=== PATIENT | male | born 1990 | race Caucasian/White ===

== ENCOUNTER 2023-08-20 13:27 | Emergency (ER) | payer OTHER, SELFPAY ==
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
[2023-08-20 13:32] VITALS: BP 111/65; PULSE 97; RESP 20; TEMP 36.6; O2SAT 98; BMI 25.8
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
[2023-08-20 13:58] LABS: MANUAL DIFF FLAG NO
[2023-08-20 14:06] LABS: Basophils Percent Auto 0.5 % (0-2); Eosinophils Absolute Auto 0.1 X10*3/uL (0.0-0.4); Eosinophils Percent Auto 1.2 % (0-4); Hematocrit 45.2 % (42.0-52.0); Hemoglobin 15.5 g/dl (14.0-18.0); Imm Gran Abs Auto 0.05 X10*3/uL (0.00-0.03); Imm Gran Pct Auto 0.7 % (0.0-0.4); Lymphocytes Absolute Auto 2.3 X10*3/uL (1.2-4.9); Lymphocytes Percent Auto 29.9 % (20-40); Mean Corpuscular HGB Conc 34.3 g/dl (31.0-36.0); Mean Corpuscular Hemoglobin 30.2 pg (27.0-33.0); Mean Corpuscular Volume 87.9 fL (80.0-98.0); Mean Platelet Volume 10.3 fL (9.4-12.4); Monocytes Absolute Auto 0.5 X10*3/uL (0.1-1.2); Monocytes Percent Auto 6.5 % (2-11); Neutrophils Absolute Auto 4.7 x10*3/uL (2.0-8.3); Neutrophils Percent Auto 61.2 % (45-73); Platelet Count 213 X10*3/uL (160-400); Red Blood Count 5.14 X10*6/uL (4.60-5.80); Red Cell Distribution Width 13.2 % (11.0-16.0); White Blood Count 7.7 X10*3/uL (4.8-10.8)
[2023-08-20 14:17] LABS: Alanine Aminotransferase 33 U/L (0-40); Albumin Level 4.4 g/dL (3.5-5.0); Alkaline Phosphatase 57 U/L (39-117); Anion Gap 10 (12-20); Aspartate Amino Transferase 28 U/L (5-37); Bilirubin Direct 0.2 mg/dL (0.0-0.5); Bilirubin Total 0.6 mg/dL (0.0-1.0); Blood Urea Nitrogen 16 mg/dL (9-16); Calcium 9.2 mg/dL (8.4-10.2); Carbon Dioxide 30 mmol/L (22-29); Chloride 104 mmol/L (96-108); Creatinine Clr Calc Pharmacy 93.5; Estimated Glomerular Filt Rate > 60; Glucose Random 150 mg/dL (60-115); Lipase 18 U/L (8-78); Potassium 3.9 mmol/L (3.3-5.1); Sodium 140 mmol/L (135-145); Total Protein 7.1 g/dL (6.5-8.0)
[2023-08-20 15:20] VITALS: BP 107/67; PULSE 86; RESP 16; O2SAT 99
[2023-08-20] MEDS: iohexoL 350 MG/ML 100 ML INFUS..BTL IV (15:58)
[2023-08-20] MEDS: Lidocaine HCl 1 % MPF 5 ML VIAL SUBCUT ×3 (16:52→16:54)
[2023-08-20] MEDS: Diphth,Pertus(ACell),Tet Adult 0.5 ML SYRINGE IM (16:54)
[2023-08-20 19:06] VITALS: BP 138/79; PULSE 88; RESP 16; TEMP 37; O2SAT 99
== END 2023-08-20 19:23 | disposition home or self-care (01) ==
PROVIDERS: Physician Assistant Medical; Emergency Provider Internal Medicine
DX: S81.811A Laceration without foreign body, right lower leg, initial encounter (principal); V86.55XA Driver of 3- or 4- wheeled all-terrain vehicle (ATV) injured in nontraffic accident, initial encounter; R07.89 Other chest pain; Y93.89 Activity, other specified; Y92.9 Unspecified place or not applicable; Y99.9 Unspecified external cause status
CPT/HCPCS: 12002; 36415; 70450; 71260; 72125; 73590; 74177; 80048; 80076; 83690; 85025; 90471; 90715; 99284; Q9967

== ENCOUNTER 2025-03-17 15:27 | Outpatient (REF) | payer OTHER, SELFPAY ==
[2025-03-17 16:39] LABS: MANUAL DIFF FLAG NO
[2025-03-17 17:14] LABS: Hematocrit 43.0 % (42.0-52.0); Hemoglobin 15.1 g/dl (14.0-18.0); Imm Gran Abs Auto 0.02 X10*3/uL (0.00-0.03); Imm Gran Pct Auto 0.3 % (0.0-0.4); Lymphocytes Absolute Auto 2.6 X10*3/uL (1.2-4.9); Mean Corpuscular HGB Conc 35.1 g/dl (31.0-36.0); Mean Corpuscular Hemoglobin 30.1 pg (27.0-33.0); Mean Corpuscular Volume 85.7 fL (80.0-98.0); NRBC Abs Auto 0.000 X10*3/uL (0.0-0.012); NRBC Pct Auto 0.0 /100WBC (0.0-0.2); Platelet Count 194 X10*3/uL (160-400); Red Blood Count 5.02 X10*6/uL (4.60-5.80); White Blood Count 6.4 X10*3/uL (4.8-10.8)
[2025-03-17 17:15] LABS: Hemoglobin A1C 129.6855 umol/L; Total Hemoglobin (HGBA1C) 3981.4169 umol/L
[2025-03-17 17:49] LABS: Alanine Aminotransferase 61 U/L (0-40); Albumin Level 4.6 g/dL (3.5-5.0); Alkaline Phosphatase 56 U/L (39-117); Anion Gap 13 (12-20); Aspartate Amino Transferase 35 U/L (5-37); Blood Urea Nitrogen 15 mg/dL (9-16); Calcium 9.3 mg/dL (8.4-10.2); Carbon Dioxide 27 mmol/L (22-29); Chloride 106 mmol/L (96-108); Cholesterol 229 mg/dL (<200); Estimated Glomerular Filt Rate > 60; HDL Cholesterol 51 mg/dL (>40); Potassium 4.2 mmol/L (3.3-5.1); Sodium 142 mmol/L (135-145); Total Protein 6.9 g/dL (6.5-8.0); Triglycerides 72 mg/dL (<150)
[2025-03-17 22:19] LABS: CT PCR Urine NOT DETECTED (Not Detect.); NG PCR Urine NOT DETECTED (Not Detect.)
[2025-03-18 04:01] LABS: Syphilis Screen Nonreactive (Nonreactive)
[2025-03-18 04:19] LABS: HBS Num1 5.42 mIU/mL (0-7.99); HBc Num1 0.04 S/CO (0.00-0.79); HBsAGNum1 0.37 S/CO (0.00-0.99); HIV Num 1 0.05 S/CO (0.00-0.99); Hepatitis A Antibody IgM 0.18 Index (0-0.79); Hepatitis B Surface Antigen Negative (Negative); ~HepC Num1 0.09 S/CO (0.00-0.79); ~Hepatitis A Antibody IgM Nonreactive (Nonreactive); ~Hepatitis B Surface Antibody NONREACTIVE (Nonreactive); ~Hepatitis C Antibody Nonreactive (Nonreactive)
== END 2025-03-17 15:28 | disposition home or self-care (01) ==
LOC: HO.LAB 15:27
PROVIDERS: PCP Physician Assistant; Visit Provider Physician Assistant
DX: Z00.00 Encounter for general adult medical examination without abnormal findings (principal); Z11.3 Encounter for screening for infections with a predominantly sexual mode of transmission
CPT/HCPCS: 36415; 80048; 80061; 80076; 82306; 83036; 85025; 86704; 86706; 86709; 86780; 86803; 87340; 87389; 87491; 87591

== ENCOUNTER 2025-03-17 15:27 | Outpatient (AMB) | payer OTHER, SELFPAY ==
--- NOTE | 2025-03-17 15:26 | A.OFFPC_ITS ---
Vital Signs 03/17/25 15:31 Height 5 ft 7 in Weight 74.843 kg BMI 25.8 BP 118/62 Blood Pressure Location Lt brachial Position Sitting Respiration 16 Pulse 90 Pulse Source Pulse Oximeter Temp 97.8 F Temp Source Temporal Artery Scan Pulse Oximetry (%) 97 Oxygen Delivery Method Room Air Intake Visit Reasons: new pt alfonzo Field Manager Required: No Accompanied by: Self / Same As Patient Allergies No Known Allergies (No Known Allergies*) Allergy (Verified 03/17/25 15:26) Medication List - Last Reconciled 03/17/25 by MALATHI Lee amoxicillin-pot clavulanate 875-125 mg 1 tab PO BID triamcinolone acetonide 0.1% 1 appl topical BID Tobacco use date assessed: 03/17/25 HPI HPI Comments History of Present Illness Details 34-year-old male without any significant known medical history presents to the [facility] [place] today to establish care and for annual physical exam. He currently lives by himself but does have his daughter on the weekends. Feels safe at home. He works as a monae. He reports only occasional alcohol use. Still smoking cigarettes about 15 per day which has been ongoing on and off for the last 20 years. He has fully quit for 2 years at a time. He is not currently interested in replacement therapy. He does regularly smoke marijuana but no other drug use. He has not been seen by a provider in many years, last PCP was from pediatrics. Concerns: Poor dentition. Needs a lot of dental work but concerned about cost. Denies any pain currently Reports abnormal nasal drainage. States whenever he squeezes his nose purulent mucus comes out with foul odor. No fevers or chills. No sinus pressure He reports a rash on the chest, legs, arms present for the last several weeks. No new contacts. No one else with similar symptoms Health maintenance: Screening colonoscopies to started age 43 Reviewed past medical, surgical, family, social history. ROS: General: No fevers, malaise, unintentional weight loss HEENT: No blurred vision, diplopia. No sore throat, No hearing loss. See hpi Neck - no adenopathy Cardiovascular: No chest pain, palpitations, or leg edema Respiratory: No shortness of breath, wheezing, cough GI: No dysphagia, odynophagia, globus sensation. No abdominal pain, nausea, vomiting, diarrhea, constipation, melena, hematochezia : No dysuria, hematuria, increased urinary frequency, decreased urinary output. No testicular swelling or pain. No penile discharge MSK: No myalgia, back pain, arthralgias Neuro: No headaches, weakness, paresthesias Psych: no depression/anxiery. No AH/VH. No SI/HI Skin: see hpi EXAM: Constitutional - Awake and Alert, No apparent distress Eyes - PERRLA, EOMI. Anicteric Ears - external ears normal, canals clear, TMs intact and pearly flower with good cone of light Nose- septum midline, no sinus tenderness. Erythematous turbinates with purulence noted in the left near Mouth/throat- mucosa moist, tongue and uvula midline, no erythema/edema or tonsillar adenopathy. Neck-trachea midline, thyroid symmetric without palpable nodules, no adenopathy Cardiovascular - S1S2, RRR, No edema Respiratory - Normal lung expansion, Normal respiratory effort, No respiratory distress, CTA bilaterally Gastrointestinal - NT / ND; +BS; No rebound or guarding - No CVA tenderness Extremities - no calf tenderness bilaterally, no swelling Musculoskeletal - Normal inspection, normal ROM Skin - Warm/Dry, no concerning lesions . Does have a papular rash scattered on the upper and lower extremities, some excoriation. No significant erythema or warmth. No purulent drainage. No webbing of the fingers and no tunneling noted Neurological - Alert & oriented x3, CN II-XII in tact, 5/5 strength BUE and BLE, 2+ patellar reflexes, sensation intact Psychological - Appropriate affect [facility] Medical History (Updated 03/20/25 @ 13:01 by MALATHI Lee) Dental infection Ruptured appendix No pertinent past medical history Surgical History (Updated 03/17/25 @ 15:54 by MALATHI Lee) S/P appendectomy Family History (Updated 03/17/25 @ 15:55 by MALATHI Lee) Mother Lung cancer Father Emphysema lung Social History Patient Tobacco Use Status: Current everyday Tobacco user Tobacco use type: Cigarette e-Cigarette/Vaping Use: Never Used Questionnaire PHQ-9 Over the last 2 weeks, how often have you been bothered by any of the following problems? 1. Little interest or pleasure in doing things: not at all 2. Feeling down, depressed, or hopeless: several days 3. Trouble falling or staying asleep, or sleeping too much: not at all 4. Feeling tired or having little energy: several days 5. Poor appetite or overeating: several days 6. Feeling bad about yourself - or that you are a failure or have let yourself or your family down: several days 7. Trouble concentrating on things, such as reading the newspaper or watching television: not at all 8. Moving or speaking so slowly that other people could have noticed. Or the opposite - being so fidgety or restless that you have been moving around a lot more than usual: not at all 9. Thoughts that you would be better off or of hurting yourself in some way: not at all Total score: 4 Source: Developed by Drs. Aamir Boston, Cynthia Figueroa, Martin Partida and colleagues, with an educational marissa from [employer]. Thrive Questionnaire Date Thrive assessed: 03/17/25 I am a: Patient What is your living situation today?: I have a steady place to live Within the past 12 months, did the food you bought not last and you didn't have the money to get more?: Sometimes True Within the past 12 months, did you worry whether your food would run out before you got money to buy more?: Sometimes True Do you have trouble paying for medicines?: No Do you have trouble getting transportation to medical appointments?: No Do you have trouble paying your heating and electricity bill?: No Do you have trouble taking care of your child, family member or friend?: No Do you have trouble with day-to-day activities such as bathing, preparing meals, shopping, managing finances, etc.?: No Are you currently unemployed and looking for a job?: No Are you interested in more education?: No THRIVE Score: 2 AUDIT C Alcohol Use Questionnaire (AUDIT-C) 1. How often do you have a drink containing alcohol?: Monthly or less 2. How many drinks containing alcohol do you have on a typical day when you are drinking?: 1 or 2 Total Score: 1 MICHEL-7 AMB Questionnaire MICHEL-7 Date MICHEL - 7 assessed: 03/17/25 Feeling nervous, anxious, or on edge: 1 = Several days Not being able to stop or control worryin = Several days Worrying too much about different things: 1 = Several days Trouble relaxin = Not at all Being so restless that it is hard to sit still: 0 = Not at all Becoming easily annoyed or irritable: 1 = Several days Feeling afraid as if something awful might happen: 1 = Several days Total MICHEL-7 score (0-4 normal; 5-9 mild; 10-14 moderate; 15-21 severe): 5 Source: Developed by Drs. Aamir Boston, Cynthia Figueroa, Martin Partida and colleagues, with an educational marissa from [employer]. Physical exam (Primary Care) Vital Signs: Last Vital Signs Temp 97.8 F 03/17/25 15:31 Pulse 90 03/17/25 15:31 Resp 16 03/17/25 15:31 BP 118/62 03/17/25 15:31 Pulse Ox 97 03/17/25 15:31 Oxygen Delivery Method Room Air 03/17/25 15:31 BMI result Body Mass Index 25.8 Tobacco/Smoking Status: Tobacco use Status Tobacco use date assessed 03/17/25 03/17/25 15:28 Patient Tobacco Use Status Current everyday Tobacco 03/17/25 15:33 Tobacco use type Cigarette 03/17/25 15:33 e-Cigarette/Vaping Use Never Used 03/17/25 15:33 PHQ-9: PHQ-9 Score PHQ-9: Total score 4 03/17/25 15:45 Thrive Assessment: Date of Thrive Assessment Date Thrive assessed 03/17/25 03/17/25 15:38 Coding Level of Care Code New Pt Level 4 (07978) Complex EM visit Add On G2211 Diagnoses Routine medical exam Z00.00 Dental infection K04.7 Dermatitis, unspecified L30.9 Assessment & Plan Assessment & Plan (1) Routine medical exam: Code(s): Z00.00 - Encounter for general adult medical examination without abnormal findings Plan: 34-year-old male presenting for annual physical exam. Plan as below (2) Dental infection: Code(s): K04.7 - Periapical abscess without sinus Category: Medical Plan: Augmentin 875 mg twice daily x7 days prescribed. Advised he needs to follow-up with a dentist soon (3) Dermatitis, unspecified: Code(s): L30.9 - Dermatitis, unspecified Category: Medical Plan: Triamcinolone cream prescribed Plan Routine screening labs as ordered below. Patient does requests STI testing. He does consent to HIV testing Screening colonoscopy to begin at age 43 Continue following for annual skin exams and use sun protection Annual eye exams Wear seat belt in car Recommend regular exercise and healthy diet Follow up in 1 year for annual physical Orders: Orders Complete Blood Count Auto Diff 03/17/25 Z. - Encounter for general adult medical examination without abnormal findings, Z11.3 - Encounter for screening for infections with a predominantly sexual mode of transmission Hemoglobin A1c 03/17/25 Z. - Encounter for general adult medical examination without abnormal findings, Z11.3 - Encounter for screening for infections with a predominantly sexual mode of transmission Liver Panel 03/17/25 Z. - Encounter for general adult medical examination without abnormal findings, Z11.3 - Encounter for screening for infections with a predominantly sexual mode of transmission Vitamin D 25-OH Total 03/17/25 Z. - Encounter for general adult medical examination without abnormal findings, Z11.3 - Encounter for screening for infections with a predominantly sexual mode of transmission Basic Metabolic Panel 03/17/25 Z. - Encounter for general adult medical examination without abnormal findings, Z11.3 - Encounter for screening for infections with a predominantly sexual mode of transmission Lipid Panel 03/17/25 Z. - Encounter for general adult medical examination without abnormal findings, Z11.3 - Encounter for screening for infections with a predominantly sexual mode of transmission HIV Ab/Ag 03/17/25 Z. - Encounter for general adult medical examination without abnormal findings, Z11.3 - Encounter for screening for infections with a predominantly sexual mode of transmission Syphilis Screen 03/17/25 Z00. - Encounter for general adult medical examination without abnormal findings, Z11.3 - Encounter for screening for infections with a predominantly sexual mode of transmission Hepatitis A,B,C Profile 03/17/25 Z. - Encounter for general adult medical examination without abnormal findings, Z11.3 - Encounter for screening for infections with a predominantly sexual mode of transmission CT NG by PCR Urine 03/17/25 Z. - Encounter for general adult medical examination without abnormal findings, Z11.3 - Encounter for screening for infections with a predominantly sexual mode of transmission Medications: New triamcinolone acetonide 0.1% 1 appl topical BID 30 grams 1RF amoxicillin-pot clavulanate 875-125 mg 1 tab PO BID 14 tabs 0RF Discontinued acetaminophen Discontinued Reason: Patient Completed Course 1,000 mg (2 x 500 mg) PO QID PRN 30 tabs 0RF pain cephalexin Discontinued Reason: Patient Completed Course 500 mg PO QID 3 days 12 tabs 0RF ibuprofen Discontinued Reason: Patient Completed Course 600 mg PO Q6H PRN 20 tabs 0RF pain oxycodone Partial Fill upon patient request. Discontinued Reason: Patient Completed Course 5 mg PO Q6H PRN 14 tabs 0RF pain Patient Instructions: Health Portal: Go to [employer] and click patient portal
[2025-03-17 15:31] VITALS: BP 118/62; PULSE 90; RESP 16; TEMP 36.6; O2SAT 97; BMI 25.8
== END 2025-03-17 16:09 | disposition home or self-care (01) ==
LOC: HO.HMCHD 15:27
PROVIDERS: PCP Physician Assistant; Visit Provider Physician Assistant
DX: Z00.00 Encounter for general adult medical examination without abnormal findings (principal); K04.7 Periapical abscess without sinus; L30.9 Dermatitis, unspecified